=== PATIENT | female | born 1965 | race Caucasian/White ===

== ENCOUNTER → 2023-05-06 15:39 | Outpatient (REF) | payer BC, SELFPAY | LOC: MRI 3T 15:39 | PROVIDERS: ATTENDING PHYSICIAN Nurse Practitioner Family; FAMILY PHYSICIAN Internal Medicine | DX: Z12.39 Encounter for other screening for malignant neoplasm of breast (principal) | CPT/HCPCS: 77049; A9585 ==

== ENCOUNTER 2023-05-30 05:31 | Emergency (ER) | payer BC, SELFPAY ==
[2023-05-30 05:41] VITALS: BP 144/66
[2023-05-30 06:05] VITALS: BMI 24.4
[2023-05-30 06:13] VITALS: BP 133/79
[2023-05-30 06:22] LABS: % Basophils 0.7 % (0-2); % Eosinophils 1.2 % (0-6); % Immature Granulocytes 0.3 % (0-0.5); % Lymphocytes 20.1 % (20.5-51.1); % Monocytes 4.8 % (1.7-9.3); % Neutrophils 72.9 % (42.2-75.2); Absolute Eosinophils 0.1 10^3/uL (0-0.7); Absolute Lymphocytes 1.2 10^3/uL (1.2-3.4); Absolute Monocytes 0.3 10^3/uL (0.1-0.6); Absolute Neutrophils 4.2 10^3/uL (1.4-6.5); Hematocrit 39.6 % (37.0-47.0); Hemoglobin 13.4 g/dL (12.0-16.0); Mean Corp Hgb Conc. 33.8 g/dL (33.0-37.0); Mean Corpuscular Hgb 30.8 pg (27.0-31.0); Mean Platelet Volume 9.5 fL (7.4-10.4); Nucleated Red Blood Cells % 0 %; Platelet Count 224 10^3/uL (130-400); Red Blood Cell Count 4.35 10^6/uL (4.20-5.40); White Blood Cell Count 5.8 10^3/uL (4.8-10.8)
[2023-05-30 06:32] LABS: ALT (SGPT) 24 U/L (0-35); AST (SGOT) 25 U/L (14-36); Alkaline Phosphatase 61 U/L (38-126); Blood Urea Nitrogen 20 mg/dl (7-17); Carbon Dioxide 29 mmol/L (22-30); Chloride 103 mmol/L (98-107); Estimated Creatinine Clearance 90 ml/min; Glucose 118 mg/dl (70-99); Lipase 125 U/L (23-300); Potassium 4.8 mmol/L (3.5-5.1); Sodium 134 mmol/L (135-145); Total Bilirubin 0.4 mg/dl (0.2-1.3); Total Protein 6.3 g/dl (6.3-8.2); eGFR > 60.00
[2023-05-30 06:43] LABS: Troponin I < 0.012 ng/ml
--- NOTE | 2023-05-30 06:46 | ED.GENMED ---
History of Present Illness
General
Chief Complaint: Abdominal Symptoms
Time Seen by Provider: 05/30/23 06:46
Travel History
Have you had any contact with someone who has COVID-19?: No
Do you have any symptoms of coronavirus? Fever > 100 degrees, chills, cough, shortness of breath, sore throat, loss of taste or smell, muscle aches, or headache?: No
History of Present Illness
History of Present Illness:
HPI: The patient presents with discomfort in the upper abdomen. She describes as indigestion has had this same symptom multiple times in the past she tells me that nothing helps. This time however, the patient's symptoms have been ongoing for many
hours and therefore concerned her more. The pain is in the epigastric region. She states she has been on a PPI daily but does not want the side effects and therefore stopped this.
EXAM:
GENERAL: Well appearing in no distress
HEENT: Moist oral mucosa
CARDIOVASCULAR: No murmurs, normal heart rate, regular rhythm, No chest wall tenderness
PULMONARY: No respiratory distress, breath sounds are clear and equal
ABDOMEN: Soft with no peritoneal signs, minimal if any tenderness
NEUROLOGIC: Excellent strength all extremities, no coordination deficits
PSYCHIATRIC: Appropriate mental status, normal insight and judgement
EXTREMITIES: Nontender, no edema, moves all extremities equally
SKIN: No rash, no lesions
TIME OF INITIAL ENCOUNTER: 7:05 AM
NUMBER AND COMPLEXITY OF PROBLEMS ADDRESSED AT THE ENCOUNTER
� Chronic conditions affecting care: GERD, anxiety, high blood pressure
� Acute Exacerbation and/or Progression of Chronic Illness: This is an acute problem
� Differential Diagnosis includes: GERD, low suspicion for bowel obstruction, biliary colic/cholecystitis
AMOUNT AND/OR COMPLEXITY OF DATA TO BE REVIEWED AND ANALYZED
� I performed an independent evaluation of and my interpretation is:
EKG: Sinus 51, no acute ST abnormality, no old to compare
CT:
X-rays:
Laboratory Studies: CBC, chemistries, and troponin all negative, lipase also negative.
Other: Ultrasound imaging shows no acute abnormality.
� Review of other/old records: I reviewed records, the patient has had multiple breast MRIs
� Clinical information was obtained by an independent historian: I spoke to the at bedside
� Prescriptions/Medications Considered but not given:
� Further testing considered but not performed: Considered CT�see below
RISK OF COMPLICATIONS AND/OR MORBIDITY OR MORTALITY OF PATIENT MANAGEMENT
� Social determinants of health affecting care: Lives at home
� Discussion with other providers:
� Escalation of care including admission/observation vs risk of discharge considered: I favor recurrence of GERD/gastritis as opposed to other etiology. She has not tried anything recently for this. I have ordered
Pepcid/Protonix/Carafate. I considered ultrasound imaging however the patient does not want radiation risk. Will obtain ultrasound imaging for further evaluation. Ultrasound imaging relatively unremarkable. She feels markedly improved on
reassessment at 10:10 AM after GI meds given. She is known to Dr. Viera and will follow-up with her.
Phy Exam
Physical Exam
Physical Exam:
See HPI
Course
Orders/Labs/Results
Orders:
Orders
05/30/23 05:46
Electrocardiogram (*1) Urgent
Reason for Study: Abdominal Pain
EKG- Treatment ONCE
05/30/23 06:07
CMP [Comprehensive Metabolic Panel] Urgent
Complete Blood Count/With Diff Urgent
Lipase Urgent
Troponin I Urgent
05/30/23 07:04
Famotidine [Pepcid] 20 mg IV NOW STA
Pantoprazole [Protonix IV] 40 mg IV NOW STA
Sucralfate Suspension [Carafate Suspension] 1 gm PO NOW STA
US Abdomen Complete/Upper Urgent
Comment:
Reason For Exam: upper pain
Abnormal Lab Results
05/30/23
06:07
Lymphocytes % 20.1 L %
(20.5-51.1)
Sodium 134 L mmol/L
(135-145)
BUN 20 H mg/dl
(7-17)
Glucose 118 H mg/dl
(70-99)
05/30/23 06:07
05/30/23 06:07
Vital Signs
Initial and Last Documented VS:
Initial Vital Signs
Temp Pulse Resp BP Pulse Ox
98.3 F 55 22 144/66 100
05/30/23 05:41 05/30/23 05:41 05/30/23 05:41 05/30/23 05:41 05/30/23 05:41
Last Documented Vital Signs
Temp Pulse Resp BP Pulse Ox
98.3 F 51 13 123/76 99
05/30/23 05:41 05/30/23 10:00 05/30/23 10:00 05/30/23 10:00 05/30/23 10:00
*Critical Care Note
Total Time (30-74mins, 75-104mins- exclusive of procedures): Not Applicable
ED Attending Note
-
Portions of this chart may have been created with voice recognition software.� Occasional wrong word or��sound alike� substitutions may have occurred due to the inherent limitations of voice recognition software.
Discharge Plan
Departure
Patient Disposition: Home (Routine Discharge)
Date of Disposition: 05/30/23
Time of Disposition: 10:07
Patient with high blood pressure during this ER visit?: Yes
Discharge Problem:
GERD (gastroesophageal reflux disease)
Instructions: Acid reflux and gastroesophageal reflux disease in adults, Abdominal Pain
Prescriptions:
New
sucralfate [Carafate] 100 mg/mL suspension
10 ml PO ACHS PRN (Reason: pain) Qty: 400 0RF
No Action
bupropion HCl 150 mg Tablet Sustained-Release 12 Hr
150 mg PO DAILY
oxybutynin chloride [Ditropan XL] 15 mg Tablet Extended Release 24hr
15 mg PO DAILY
alendronate [Fosamax] 70 mg Tablet
70 mg PO QWEEK
Rx Instructions:
tuesday
Vitamin C 1,000 mg Capsule, Extended Release
1 cap PO DAILY
biotin 500 mcg Capsule
2 mg PO DAILY
olmesartan 20 mg Tablet
20 mg PO DAILY
cholecalciferol (vitamin D3) [Vitamin D3] 50 mcg (2,000 unit) Capsule
75 mcg PO DAILY
Referrals:
Mis Bauer MD [Family Provider] -
Abimbola Viera DO [Active] - Follow up in 2-3 days
Activity Restrictions/Additional Instructions:
I recommended 2-week course of [id number] omeprazole. This helps to decrease stomach acid production. For more immediate relief, I recommend taking [id number]-[id number] Pepcid. This helps to fight the acid that is already there. I have also
given you prescription for Carafate which helps to coat the esophagus and stomach. Follow-up with Dr. Viera.
Interventions
Interventions:
*Risk Screen - Suicide Last Done: 05/30/23 05:41
*General Assessment Last Done: 05/30/23 05:53
*Neglect/Abuse Screening Last Done: 05/30/23 05:41
ED- Fall Risk Assessment Last Done: 05/30/23 05:53
*ED COVID-19 Vaccine History Last Done: 05/30/23 05:53
FW-Nmvntw-Lpevnqtafx Assessment Last Done: 05/30/23 05:53
Discharge Date and Time
Print Language: [id number]
[2023-05-30 07:00] VITALS: BP 139/88
[2023-05-30] MEDS: CARAFATE SUSPENSION 1 GM PO (07:15)
[2023-05-30] MEDS: PROTONIX IV 40 MG IV (07:15)
[2023-05-30] MEDS: PEPCID 20 MG IV (07:15)
[2023-05-30 08:00] VITALS: BP 118/72
[2023-05-30 10:00] VITALS: BP 123/76
== END 2023-05-30 10:20 | disposition home or self-care (01) ==
LOC: EMR 05:31
PROVIDERS: Emergency Medicine; EMERGENCY PHYSICIAN Emergency Medicine; FAMILY PHYSICIAN Internal Medicine
DX: K21.9 Gastro-esophageal reflux disease without esophagitis (principal); I10 Essential (primary) hypertension
CPT/HCPCS: 99285; 96374; 96375; 76700; 80053; 83690; 84484; 85025; 93005

== ENCOUNTER → 2023-09-29 13:22 | Outpatient (REF) | payer BC, SELFPAY | LOC: RAD 13:22 | PROVIDERS: ATTENDING PHYSICIAN Obstetrics & Gynecology Gynecology; FAMILY PHYSICIAN Internal Medicine | DX: M81.0 Age-related osteoporosis without current pathological fracture (principal) | CPT/HCPCS: 77080 ==

== ENCOUNTER → 2023-10-18 17:49 | Outpatient (REF) | payer BC, SELFPAY | LOC: WDC 17:49 | PROVIDERS: ATTENDING PHYSICIAN Internal Medicine Medical Oncology; FAMILY PHYSICIAN Internal Medicine | DX: Z12.31 Encounter for screening mammogram for malignant neoplasm of breast (principal) | CPT/HCPCS: 77063; 77067 ==

== ENCOUNTER → 2024-04-06 15:00 | Outpatient (REF) | payer BC, SELFPAY | LOC: RCS 15:00 | PROVIDERS: ATTENDING PHYSICIAN Internal Medicine Cardiovascular Disease; FAMILY PHYSICIAN Internal Medicine | DX: I49.1 Atrial premature depolarization (principal); I10 Essential (primary) hypertension | CPT/HCPCS: 93306 ==

== ENCOUNTER → 2024-05-24 15:10 | Outpatient (REF) | payer BC, SELFPAY | LOC: MRI 3T 15:10 | PROVIDERS: ATTENDING PHYSICIAN Internal Medicine Medical Oncology; FAMILY PHYSICIAN Internal Medicine | DX: Z12.39 Encounter for other screening for malignant neoplasm of breast (principal) | CPT/HCPCS: 77049; A9585 ==

== ENCOUNTER → 2024-10-24 15:25 | Outpatient (REF) | payer BC, SELFPAY | LOC: WDC 15:25 | PROVIDERS: ATTENDING PHYSICIAN Obstetrics & Gynecology Gynecology; FAMILY PHYSICIAN Internal Medicine | DX: Z12.31 Encounter for screening mammogram for malignant neoplasm of breast (principal) | CPT/HCPCS: 77063; 77067 ==

== ENCOUNTER → 2025-01-03 13:49 | Outpatient (REF) | payer BC, SELFPAY | LOC: RAD 13:49 | PROVIDERS: ATTENDING PHYSICIAN Urology; FAMILY PHYSICIAN Internal Medicine | DX: N39.3 Stress incontinence (female) (male) (principal); N32.81 Overactive bladder; N95.8 Other specified menopausal and perimenopausal disorders | CPT/HCPCS: 76770; 76856 ==